=== PATIENT | female | born 1945 | race Caucasian/White ===

== ENCOUNTER → 2022-09-24 11:46 | Outpatient (CLI) | payer MEDICARE, OTHER, SELFPAY ==
--- NOTE | 2022-09-24 11:48 | DI.MRI.S_ITS ---
PROCEDURE: MR LUMBAR SPINE WO CON INDICATIONS: LUMBAR STENOSIS WITH NEUROGENIC CLAUDICATION TECHNIQUE: Noncontrast sagittal T1 spin echo and T2 fast echo, sagittal STIR, and T2 fast spin echo through the lumbar spine. In cases with scoliosis, additional coronal T2 fast spin echo may be performed. COMPARISON: None. FINDINGS: Image quality: Excellent. Alignment and Curvature: Dextroscoliosis with a Weiss angle 30?. Bone Marrow: Marrow is of normal overall signal. No acute vertebral body compression fractures. Spinal Cord: Conus medullaris terminates at the L1 level. Visualized cord demonstrates normal signal and size. Paraspinous Soft Tissues: No paravertebral masses. T11-T12: The disc is desiccated with disc space narrowing and a diffuse disc bulge. The foramina and central canal are patent. T12-L1: No significant disc bulge. The foramina and central canal are patent. L1-L2: The disc is desiccated with a diffuse disc bulge. The foramina and central canal are patent. L2-L3: Diffuse disc bulge causes mild bilateral foraminal stenosis. Central canal is patent. L3-L4: Disc space narrowing with diffuse disc bulge with disc osteophytes and facet hypertrophy worse on the right and ligamentum flavum hypertrophy. Severe bilateral foraminal stenosis. The central canal has moderate stenosis. L4-L5: Disc space narrowing with diffuse disc bulge with disc osteophytes and facet hypertrophy. Severe bilateral foraminal stenosis. The central canal is patent. L5-S1: Disc space narrowing with diffuse disc bulge with disc osteophytes and facet hypertrophy. The central canal is patent. IMPRESSION: 1. Multilevel lumbar spondylosis causing foraminal and central canal stenosis as detailed above. 2. Dextroscoliosis with a Weiss angle of 30?. 3. No acute abnormality. Dictated by: Avtar Gee M.D. on 09/24/2022 at 13:02 Approved by: Avtar Gee M.D. on 09/24/2022 at 13:42
== END ==
PROVIDERS: Referring Provider Physical Medicine & Rehabilitation; Visit Provider Physical Medicine & Rehabilitation
DX: M48.062 Spinal stenosis, lumbar region with neurogenic claudication (principal); M47.816 Spondylosis without myelopathy or radiculopathy, lumbar region; M47.817 Spondylosis without myelopathy or radiculopathy, lumbosacral region; M41.9 Scoliosis, unspecified; M17.0 Bilateral primary osteoarthritis of knee
CPT/HCPCS: 72148; 99214

== ENCOUNTER → 2023-02-17 13:52 | Outpatient (CLI) | payer MEDICARE, OTHER, SELFPAY ==
--- NOTE | 2023-02-17 13:53 | DI.MRI.S_ITS ---
PROCEDURE: MR KNEE RT WO CON INDICATIONS: Right knee possible chondral TECHNIQUE: Noncontrast sagittal PD fast spin echo and T2 fast spin echo with fat saturation, sagittal 3-D FLASH with fat saturation; coronal T1 spin echo and PD fast spin echo with fat saturation, and axial PD fast spin echo with fat saturation through the knee. COMPARISON: None. FINDINGS: Image quality: Excellent. There is fraying along the free edge of the medial and lateral meniscus. There is severe osteoarthritic degenerative change involving the medial compartment with associated marrow edema and what may be small insufficiency fractures of along the articular surface of the femoral condyle and tibial plateau. There is severe chondromalacia involving the patellofemoral joint with some mild to moderate chondromalacia involving the articular surface of the lateral compartment. ACL and PCL, lateral collateral ligament, and extensor mechanism appear within normal limits. There is a small to moderate-sized knee joint effusion and a moderate-sized Del Castillo's cyst. There is some mild to moderate increased signal along the medial collateral ligament complex suggesting a strain without evidence for full-thickness tear. IMPRESSION: 1. Fraying along the free edge of both the medial and lateral meniscus. 2. Severe chondromalacia articular surfaces of the medial compartment with associated marrow edema and some decreased signal along the articular surface of the medial femoral condyle and medial tibial plateau worrisome for developing insufficiency fractures. 3. Severe chondromalacia patellofemoral joint. 4. Small to moderate-sized knee joint effusion. 5. Moderate-sized Del Castillo cyst. 6. Edematous changes along the medial collateral ligament complex without evidence for full-thickness tear suggesting a moderate strain. 7. Mild to moderate chondromalacia articular surface of the lateral compartment Dictated by: Francisco Powell M.D. on 02/17/2023 at 15:43 Approved by: Francisco Powell M.D. on 02/17/2023 at 15:50
== END ==
PROVIDERS: Referring Provider Physical Medicine & Rehabilitation; Visit Provider Physical Medicine & Rehabilitation
DX: M17.11 Unilateral primary osteoarthritis, right knee (principal); M94.261 Chondromalacia, right knee; M25.461 Effusion, right knee; M71.21 Synovial cyst of popliteal space [Baker], right knee
CPT/HCPCS: 73721

== ENCOUNTER → 2023-04-06 08:57 | Outpatient (CLI) | payer MEDICARE, OTHER, SELFPAY ==
--- NOTE | 2023-04-06 09:00 | DI.RAD.S_ITS ---
PROCEDURE: XR KNEE LT 3V INDICATIONS: Tricompartmental arthritis TECHNIQUE: 3 views of the knee were acquired. COMPARISON: None. FINDINGS: Bones: Mild osteopenia, tricompartmental DJD of the left knee especially severe in the medial compartment with joint space narrowing, osteophytes, subchondral sclerosis. No fracture or subluxation seen. Soft tissues: Small suprapatellar joint effusion present IMPRESSION: Severe tricompartmental DJD especially severe in the medial compartment. Dictated by: Fredrick Poole M.D. on 04/06/2023 at 12:29 Approved by: Fredrick Poole M.D. on 04/06/2023 at 12:43
--- NOTE | 2023-04-06 09:00 | DI.RAD.S_ITS ---
PROCEDURE: XR KNEE RT 3V INDICATIONS: Tricompartmental arthritis TECHNIQUE: 3 views of the knee were acquired. COMPARISON: None. FINDINGS: Bones: Tricompartmental degenerative changes of the right knee are seen especially severe in the medial compartment. Mild osteopenia is also noted. 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 on 04/06/2023 at 10:57 Approved by: Fredrick Poole M.D. on 04/06/2023 at 12:25
== END ==
PROVIDERS: Referring Provider Physical Medicine & Rehabilitation; Visit Provider Physical Medicine & Rehabilitation
DX: M17.0 Bilateral primary osteoarthritis of knee (principal); M47.816 Spondylosis without myelopathy or radiculopathy, lumbar region; M48.062 Spinal stenosis, lumbar region with neurogenic claudication; M23.203 Derangement of unspecified medial meniscus due to old tear or injury, right knee
CPT/HCPCS: 73562; 99214

== ENCOUNTER 2024-04-05 13:39 | Outpatient (CLI) | payer MEDICARE, OTHER, SELFPAY ==
[2024-04-05] VITALS (8 sets, daily range): BP systolic 104–164; BP diastolic 55–79; PULSE 72–81; RESP 13–21; TEMP 36.8; O2SAT 96–100
--- NOTE | 2024-04-05 13:41 | DI.RAD.S_ITS ---
PROCEDURE: PAIN L/S TRANSFORAMINAL INJECT INDICATIONS: Left L4/5 TFESI COMPARISON: None. FINDINGS/IMPRESSION: Fluoroscopic spot filming was performed to verify placement of spinal needles at the left transforaminal L4-L5 level(s), as labeled on the films. Appropriate location(s) of the needle tip(s) was confirmed by injection of iodinated contrast. Dictated by: Schuyler Alcala M.D. on 04/05/2024 at 15:50 Approved by: Schuyler Alcala M.D. on 04/05/2024 at 15:50
[2024-04-05] MEDS: MIDAZOLAM 2 MG/2 ML VIAL IV (14:45)
[2024-04-05] MEDS: BETAMETHASONE 30 MG/5 ML MDV 12 MG INJ (14:51)
[2024-04-05] MEDS: BUPIVACAINE 0.25% (PF) VIAL 2 ML INJ (14:52)
[2024-04-05] MEDS: iopamidoL 15 ML VIAL 3 ML INJ (14:52)
[2024-04-05] MEDS: DEXAMETHASONE 10 MG/ML VIAL INJ (14:53)
--- NOTE | 2024-04-05 15:02 | P.PCN_ITS ---
Date/Time/Diagnoses Date of procedure: 04/05/24 Time of procedure: 15:02 Pre-procedure diagnosis: 1. FORAMINAL STENOSIS WITH LE SYMPTOMS Post-procedure diagnosis: same Procedure Notes Procedure: 1. FLUOROSCOPICALLY GUIDED CONTRAST CONTROLLED TRANSFORAMINAL EPIDURAL STEROID INJECTION - LEFT L4/5 Indications: Brooke is referred for treatment of Foraminal Stenosis with Left LE Symptoms Physician: Vijay Marie Total Fluoroscopy time (seconds): 8 Total sedation minutes: 12 Complications: none Procedure in detail & Post-procedure care: FINDINGS Foraminal Nerve Root Compression secondary to disc disease and facet hypertrophy DESCRIPTION OF PROCEDURE Following review of allergy and review of potential side effects and complications, including, but not necessarily limited to, infection, allergic reaction, local tissue breakdown, stroke, temporary or permanent nerve injury, paralysis, and possible , the patient indicated that the patient understood and agreed to proceed. An informed consent document was signed by the patient, witnessed by a nurse, and placed in the patient's chart. Additionally, other treatment options including medications, modalities, and physical therapy were reviewed with the patient. After review of previous anaesthesic history and IV conscious sedation the patient was deemed safe to proceed with today?s procedure with IV conscious sedation as ASA class II designation. Safety time-out was performed to confirm patient ID, procedure to be performed and site of procedure. IV sedation was accomplished with a combination of 2mg of Versed administered by the RN after DO order, titrated to patient comfort during the course of the procedure while the patient remained responsive to all verbal commands In the prone position following sterile prep and drape of the lumbar region, the left L4/5 posterior neuroforamen was identified fluoroscopically. The skin was anesthetized via a 25-gauge 1.5-inch needle with 1% lidocaine solution. At this point, a 25-gauge 3.5-inch spinal needle was atraumatically introduced and advanced under fluoroscopic guidance through the posterior left L4/5 neuroforamen to approximately the anterior aspect of the canal. Depth was confirmed on lateral view. Following negative aspiration, injection of approximately 1.5 cc of Isovue 200 under live fluoroscopy in the AP view confirmed excellent flow along the nerve root, into the epidural space without vascular or intrathecal uptake observed Radiological data, including multiple fluoroscopic views of the lumbosacral spine, reveal a spinal needle at the left L4/5 posterior neuroforamen. Subsequent views show flow of contrast material flowing superiorly and inferiorly along the nerve root confirming epidural flow. Subsequently, a test dose of 1.5 cc of 1% lidocaine solution was administered and patient was observed for two minutes for signs or symptoms of complications, including abdominal pain, shortness of breath, bilateral upper or lower extremity weakness, nausea and vomiting, prior to steroid injection. At this point, a total of 2cc or 10mg of dexamethasone and 6mg of betamethasone was injected without incident. The procedure tolerated the procedure well without signs or symptoms of complications prior to transfer to the recovery area continued monitoring without incident. The patient was then transferred to the recovery area where they were observed for an appropriate time after the injection. The patient reported a VAS score of 7 prior to the procedure and a post- procedure VAS of 0. POST OP INSTRUCTIONS The patient was provided a Pain Log to continue to record their response to the target-specific procedure prior to follow-up visit with their referring physician. Additionally, specific post-injection care instructions and a contact number to our office were provided if concerns arise regarding possible complications associated with the procedure are suspected.
== END 2024-04-05 15:35 | disposition home or self-care (01) ==
PROVIDERS: Referring Provider Physical Medicine & Rehabilitation; Visit Provider Physical Medicine & Rehabilitation
DX: M48.061 Spinal stenosis, lumbar region without neurogenic claudication (principal); M51.16 Intervertebral disc disorders with radiculopathy, lumbar region; M47.26 Other spondylosis with radiculopathy, lumbar region
CPT/HCPCS: 64483; 99152; J0702; J1100; J2250; J3490

== ENCOUNTER 2024-12-22 09:47 | Outpatient (CLI) | payer MEDICARE, OTHER, SELFPAY ==
[2024-12-22] VITALS (7 sets, daily range): BP systolic 121–169; BP diastolic 67–96; PULSE 72–80; RESP 16–23; TEMP 36.7; O2SAT 94–100
[2024-12-22] MEDS: MIDAZOLAM 2 MG/2 ML VIAL IV (11:03)
[2024-12-22] MEDS: BETAMETHASONE 30 MG/5 ML MDV 12 MG INJ (11:08)
--- NOTE | 2024-12-22 11:17 | P.PCN_ITS ---
Date/Time/Diagnoses Date of procedure: 12/22/24 Time of procedure: 11:17 Pre-procedure diagnosis: 1. FORAMINAL STENOSIS WITH LE SYMPTOMS Post-procedure diagnosis: same Procedure Notes Procedure: 1. FLUOROSCOPICALLY GUIDED CONTRAST CONTROLLED TRANSFORAMINAL EPIDURAL STEROID INJECTION - LEFT L4/5 Indications: Shirlene is referred by Dr. Yoon for treatment of Foraminal Stenosis with Left LE Symptoms Physician: Vijay Marie Total Fluoroscopy time (seconds): 11 Total sedation minutes: 13 Complications: none Procedure in detail & Post-procedure care: FINDINGS Foraminal Nerve Root Compression secondary to disc disease and facet hypertrophy DESCRIPTION OF PROCEDURE Following review of allergy and review of potential side effects and complications, including, but not necessarily limited to, infection, allergic reaction, local tissue breakdown, stroke, temporary or permanent nerve injury, paralysis, and possible , the patient indicated that the patient understood and agreed to proceed. An informed consent document was signed by the patient, witnessed by a nurse, and placed in the patient's chart. Additionally, other treatment options including medications, modalities, and physical therapy were reviewed with the patient. After review of previous anaesthesic history and IV conscious sedation the patient was deemed safe to proceed with today?s procedure with IV conscious sedation as ASA class II designation. Safety time-out was performed to confirm patient ID, procedure to be performed and site of procedure. IV sedation was accomplished with a combination of 2mg of Versed administered by the RN after DO order, titrated to patient comfort during the course of the procedure while the patient remained responsive to all verbal commands In the prone position following sterile prep and drape of the lumbar region, the left L4/5 posterior neuroforamen was identified fluoroscopically. The skin was anesthetized via a 25-gauge 1.5-inch needle with 1% lidocaine solution. At this point, a 25-gauge 3.5-inch spinal needle was atraumatically introduced and advanced under fluoroscopic guidance through the posterior left L4/5 neuroforamen to approximately the anterior aspect of the canal. Depth was confirmed on lateral view. Following negative aspiration, injection of approximately 1.5 cc of Isovue 200 under live fluoroscopy in the AP view confirmed excellent flow along the nerve root, into the epidural space without vascular or intrathecal uptake observed Radiological data, including multiple fluoroscopic views of the lumbosacral spine, reveal a spinal needle at the left L4/5 posterior neuroforamen. Subsequent views show flow of contrast material flowing superiorly and inferiorly along the nerve root confirming epidural flow. Subsequently, a test dose of 1.5cc of 0.25% marcaine solution was administered and patient was observed for two minutes for signs or symptoms of complications, including abdominal pain, shortness of breath, bilateral upper or lower extremity weakness, nausea and vomiting, prior to steroid injection. At this point, a total of 3cc or 10mg of dexamethasone and 12mg of betamethasone was injected without incident. The procedure tolerated the procedure well without signs or symptoms of complications prior to transfer to the recovery area continued monitoring without incident. The patient was then transferred to the recovery area where they were observed for an appropriate time after the injection. The patient reported a VAS score of 7 prior to the procedure and a post- procedure VAS of 1. POST OP INSTRUCTIONS The patient was provided a Pain Log to continue to record their response to the target-specific procedure prior to follow-up visit with their referring physician. Additionally, specific post-injection care instructions and a contact number to our office were provided if concerns arise regarding possible complications associated with the procedure are suspected.
== END 2024-12-22 11:51 | disposition home or self-care (01) ==
PROVIDERS: Referring Provider Physical Medicine & Rehabilitation; Visit Provider Physical Medicine & Rehabilitation
DX: M48.061 Spinal stenosis, lumbar region without neurogenic claudication (principal); M51.16 Intervertebral disc disorders with radiculopathy, lumbar region; M47.26 Other spondylosis with radiculopathy, lumbar region
CPT/HCPCS: 64483; 99152; J0702; J1100; J2250